=== PATIENT | female | born 1960 | race Caucasian/White ===

== ENCOUNTER → 2017-06-28 | Outpatient (CLI) | payer BC ==
[2015-11-25 11:07] VITALS: BP 112/62
--- NOTE | 2017-07-04 08:17 | MG ---
Examination: Bilateral screening mammogram. Clinical history: Routine screening. Technique: Digital CC and MLO views of both breasts were obtained. Computer aided detection analysis was performed and used during the interpretation. Comparison: 06/09/2016. Findings: The breasts are heterogeneously dense, reducing the sensitivity of mammography. Benign-appearing calc ifications are noted in the breasts bilaterally. No suspicious mass, area of architectural distortion or suspicious cluster of microcalcifications is noted. Impression: 1. No mammographic evidence of malignancy. BI-RADS category 2-benign findings. Recommend routine annual screening mammogram. Diagnostic CAD was utilized and reviewed. * 0 (ZERO) - ASSESSMENT INCOMPLETE; ADDITIONAL IMAGING IS NEEDED. * 0C - ASSESSMENT INCOMPLETE, NEEDS ADDITIONAL IMAGING EVALUATION AND/OR PRIOR MAMMOGRAMS FOR COMPARI SON. * 1/1 (ONE) - NEGATIVE. * 2/II (TWO) - BENIGN FINDINGS. * 3/III (THREE) - PROBABLY BENIGN FINDING; SHORT INTERVAL FOLLOW-UP SUGGESTED. * 4/IV (FOUR) - SUSPICIOUS ABNORMALITY; BIOPSY SHOULD BE CONSIDERED. * 5/V - HIGHLY SUSPICIOUS OF MALIGNANCY; BIOPSY SHOULD BE PERFORMED. * 6/IV - KNOWN BIOPSY PROVEN MALIGNANCY-APPROPRIATE ACTION SHOULD BE TAKEN. A NEGATIVE X-RAY REPORT SHOULD NOT DELAY BIOPSY IF A DOMINANT OR CLINICALLY SUSPICIOUS MASS IS PRESENT; 4 TO 8 PERCENT OF CANCERS ARE NOT IDENTIFIED BY X-RAY. A NEGATIVE REPORT MAY REINFORCE THE CLINICAL IMPRESSION. ADENOSIS AND DENSE BREASTS MAY OBSCURE AN UNDERLYING NEOPLASM. Reported By:
== END ==
LOC: RAD 13:51
PROVIDERS: ATTEND Internal Medicine
DX: Z12.31 Encounter for screening mammogram for malignant neoplasm of breast (principal)
CPT/HCPCS: 77067

== ENCOUNTER 2020-09-05 20:25 | Inpatient (IN) ==
[2020-09-05 20:35] VITALS: BMI 36.6
--- NOTE | 2020-09-05 21:19 | DR.GENAD ---
HPI - PCP Primary Care Physician: SURAJ - Complaint/Symptoms Chief Complaint Doctors Comments: Patient is complaining of problems breathing, SOB and weakness for the past three days getting progressively worst. States she has been trying to take care of herself at home. She is a patient of Dr. Reaves and denies problems with her smell but having problems with her taste. She denies tobacco, alcohol or drug usage. She has a cough bukt denies diarrhea, hematuria or vomiting. States her stomach has been distended but she had a normal bowel movement earlier today. She has nebulizers treatment with albuterol and she took two yesterday and last night. Chief Complaint:: STARTED HAVING WEAKNESS 3 DAYS AGO AND SHORTNESS OF BREATH. SOB HAS BECAME WORSE TODAY. PATIENT HAS NOT CALLED HER PRIMARY PHYSICIAN BECAUSE SHE THOUGHT SHE WOULD GET BETTER. - COVID-19 Coronavirus risk:travel/contact w/high risk person: Yes Has patient experienced Coronavirus symptoms: Yes Coronavirus symptoms experienced: Shortness of Breath - Nurses notes reviewed Nurses Notes Review: Yes - Source History Provided: Patient - Mode of Arrival Mode of Arrival: Wheelchair - Timing Onset of Chief Complaint: 09/02/20 Came on: Gradually - Duration Duration: Constant How lon Duration: Days - Location Location: SOB, cough - Severity Severity: Moderate - Modifying Factors Worsens:: nothing Improves:: nothing PMH - PMH Past Medical History: Yes Past Medical History: Anxiety, Arthritis Past Surgical History: Yes Surgical History: Cholecystectomy, Hysterectomy, Joint Replacement, Other, Tonsillectomy, Weight Loss Surgery - Family History History of Family Medical Conditions: Yes Family Medical History: Diabetes Mellitus, Cancer, [place], Coronary Artery Disease, Hypertension - Social History Does patient currently use any type of tobacco product: No Have you used tobacco products in the last 12 months: No Type of Tobacco Use: None Does any household member use tobacco: No Alcohol Use: None Do you use any recreational Drugs:: No Lives With: Spouse Lives Where: Home - infectious screening In the last 2 months have you had wt loss of >10#?: NO Have you had fever, night sweats or hemotysis?: No Have you traveled outside the country in the last 6 months?: No Isolation: Droplet ROS - Review of Systems Constitutional: No Symptoms Reported, Weakness, Loss of Appetite Eyes: No Symptoms Reported ENTM: No Symptoms Reported Respiratoy: No Symptoms Reported, Non-Productive Cough, Short of Breath Cardiovascular: No Symptoms Reported. negative: See HPI, Chest Pain, Edema, Palpitations, Syncope, Cyanosis, Skin Mottling, Other Gastrointestinal/Abdominal: No Symptoms Reported, Nausea. negative: See HPI, Abdominal Pain, Constipation, Diarrhea, Vomiting, Food Intolerance, Other Genitourinary: No Symptoms Reported Neurological: No Symptoms Reported Musculoskeletal: No Symptoms Reported Integumentary: No Symptoms Reported Hematologic/Lymphatic: No Symptoms Reported. negative: See HPI, Anemia, Blood Clots, Easy Bleeding, Easy Bruising, Swollen Glands, Lymphadenopathy, Other Endocrine: No Symptoms Reported Psychiatric: No Symptoms Reported. negative: See HPI, Anxiety, Depression, Hallucinations, Excessive crying, Suicidal, Other PE - General Limitations: No Limitations General Appearance: Alert, In No Apparent Distress, In Distress (moderate) - Head Head Exam: Normal Inspection, Atraumatic, Normocephalic - Eyes Eye exam: Normal Appearance, PERRL, EOMI. negative: Scleral Icterus, Conjuncti sandra Injection, Nystagmus, Miosis, Mydrasis, Periorbital Swelling, Periorbital Tenderness, Other - ENT ENT Exam: Normal Exam, Normal Oropharynx, Normal External Ear Exam, Mucous Membranes Moist, TM's Normal Bilaterally External Ear Exam: Normal External Inspection TM/Canal Exam: Bilateral Normal Nose Exam: Normal Nose Exam Mouth Exam: Normal Inspection Throat Exam: Normal Inspection. negative: Tonsillar Erythema, Tonsillomegaly, Tonsillar Exudate, R Peritonsillar Mass, L Peritonsillar Mass, Muffled Voice, Other - Neck Neck Exam: Normal Inspection, Full ROM, Trachea Midline. negative: Tenderness, Meningismus, Lymphadenopathy, Thyromegaly, Other - Chest Chest Inspection: Normal Inspection, Symmetric Chest Wall Rise. negative: Tenderness, Rash, Abscess, Other - Respiratory Respiratory Exam: Normal Lung Sounds Bilat, Prolonged Expiratory Phase Respiratory Exam: Bilateral Clear to Auscultation - Cardiovascular Cardiovascular Exam: Regular Rate, Normal Rhythm, Normal Heart Sounds - Abdominal Exam Abdominal Exam: Normal Inspection, Normal Bowel Sounds, Soft, Distention, Tenderness (RLQ and suprapubic tenderness), Hyperactive Bowel Sounds Abdominal Tenderness: RLQ, Epigastrium, Moderate - Extremities Extremities Exam: Normal Inspection, Full ROM, Normal Capillary Refill. negative: Tenderness, Edema, Joint Swelling, Calf Tenderness, Other - Back Back Exam: Normal Inspection, Full ROM. negative: Tenderness, (R) CVA Tenderness, (L) CVA Tenderness, Muscle Spasm, Paraspinal Tenderness, Vertebral Tenderness, Rashes, (R) Sciatic Notch Tenderness, (L) Sciatic Notch Tendern, (R) Straight Leg Raise, (L) Straight Leg Raise, Other - Neurologic Neurological Exam: Alert, Oriented X3, CN II-XII Intact, Reflexes Normal. negative: Normal Gait (gait not tested) - Psychiatric Psychiatric Exam: Normal Affect, Normal Mood. negative: Depressed, Agitated, Anxious, Flat Affect, Manic, Homicidal Ideation, Suicidal Ideation, Other - Skin Skin Exam: Warm, Dry, Intact, Normal Color. negative: Rash, Cyanosis, Diaphoresis, Erythema, Pallor, Mottled, Other - Vital Signs Vitals: Temperature 98.0 F Pulse Rate 77 Respiratory Rate 31 Blood Pressure [Left Arm] 123/82 Blood Pressure 145/89 O2 Sat by Pulse Oximetry 92 Course - Reevaluation 1st: Improved (0147 Patient states she is breathing better and agrees to the admission.) - Consultation Called: 23:26 Call Returned: 23:26 (Dr. Mora to admit) - Education/Counseling Education/Counseling: Patient, Family Educated On: Treatment, Diagnosis, Needs for Follow Up ROR - Labs Reviewed Laboratory Results Reviewed?: Yes (All labs and x-ray results reviewed and discussed with patient) Result Diagrams: 09/05/20 21:43 09/05/20 21:43 - XRAY XRAY Interpreted by: Radiologist (CXR: Consistent with mod to severe CHF or interstitial pneumonia (rule or COVID) in appropriate clinical setting.) - EKG Rate: 86 [place]: Normal Rhythm: NSR Block: LBBB Hypertrophy: None ST: Nonsp - Labs Reviewed Laboratory: WBC 7.2 X10^3/uL (3.6-10.0) 09/05/20 21:43 RBC 4.73 X10^6/uL (3.5-5.4) 09/05/20 21:43 Hgb 13.8 g/dL (12.0-16.0) 09/05/20 21:43 Hct 40.6 % (36.0-47.0) 09/05/20 21:43 MCV 86.0 fL (80.0-100.0) 09/05/20 21:43 MCH 29.3 pg (27.0-34.0) 09/05/20 21:43 MCHC 34.0 g/dL (33.0-35.0) 09/05/20 21:43 RDW 13.3 % (11.6-16.5) 09/05/20 21:43 Plt Count 260 X10^3/uL (150.0-450.0) 09/05/20 21:43 MPV 7.6 fL (7.4-11.0) 09/05/20 21:43 Neut % (Auto) 70.9 % (42.0-75.0) 09/05/20 21:43 Lymph % (Auto) 17.8 % (21.0-51.0) L 09/05/20 21:43 [place] % (Auto) 10.9 % (0.0-13.0) 09/05/20 21:43 Eos % (Auto) 0.2 % (0.9-2.9) L 09/05/20 21:43 Baso % (Auto) 0.2 % (0.2-1.0) 09/05/20 21:43 Neut # (Auto) 5.1 x10^3/uL (2.2-4.8) H 09/05/20 21:43 Lymph # (Auto) 1.3 X10^3/uL (1.3-2.9) 09/05/20 21:43 [place] # (Auto) 0.8 x10^3/uL (0.3-0.8) 09/05/20 21:43 Eos # (Auto) 0.0 x10^3/uL (0.0-0.2) 09/05/20 21:43 Baso # (Auto) 0.0 X10^3/uL (0.0-0.1) 09/05/20 21:43 Absolute Nucleated RBC 0.0 /100WBC 09/05/20 21:43 PT 14.4 SECONDS (11.8-14.3) 09/05/20 21:43 INR Target Range - 09/05/20 21:43 INR 1.15 (0.8-1.3) 09/05/20 21:43 APTT 34.0 SECONDS (22.9-36.5) 09/05/20 21:43 PTT Comment - 09/05/20 21:43 D-Dimer 0.73 ug/ml (0.0-0.57) H* 09/05/20 21:43 Sample Site Lb 09/05/20 22:02 ABG pH 7.470 (7.35-7.45) H 09/05/20 22:02 ABG pCO2 40.0 mmHg (35.0-45.0) 09/05/20 22:02 ABG pO2 64.0 mmHg (80.0-100.0) L 09/05/20 22:02 ABG HCO3 29.1 mmol/L (22-26) H 09/05/20 22:02 ABG O2 Saturation 93.0 % (90-100) 09/05/20 22:02 ABG Base Excess 5.0 mmol/L (-2.0-2.0) H 09/05/20 22:02 Tino Test Na 09/05/20 22:02 A-a Gradient 143.0 mmHg 09/05/20 22:02 FiO2 36.0 09/05/20 22:02 Blood Gas Comments [facility]e [facility] 09/05/20 22:02 Sodium 138 mmol/L (136-145) 09/05/20 21:43 Corrected Sodium TNP 09/05/20 21:43 Potassium 3.6 mmol/L (3.5-5.1) 09/05/20 21:43 Chloride 100 mmol/L (98-107) 09/05/20 21:43 Carbon Dioxide 28.2 mmol/L (21-32) 09/05/20 21:43 BUN 8 mg/dL (7-18) 09/05/20 21:43 Creatinine 0.70 mg/dL (0.55-1.02) 09/05/20 21:43 Est GFR (MDRD) Af Amer > 60 (>60) 09/05/20 21:43 Est GFR (MDRD) Non-Af > 60 (>60) 09/05/20 21:43 Glucose 94 mg/dL (65-99) 09/05/20 21:43 Calcium 9.3 mg/dL (8.5-10.1) 09/05/20 21:43 Corrected Calcium 10.2 mg/dL (8.5-10.1) H 09/05/20 21:43 Magnesium 1.9 mg/dL (1.7-2.9) 09/05/20 21:43 Ferritin 426 ng/mL (8-252) H 09/05/20 21:43 Total Bilirubin 0.40 mg/dL (0.2-1.0) 09/05/20 21:43 AST 40 Units/L (15-37) H 09/05/20 21:43 ALT 26 Units/L (12-78) 09/05/20 21:43 Alkaline Phosphatase 97 Units/L (46-116) 09/05/20 21:43 Creatine Kinase 24 Units/L (26-192) L 09/05/20 21:43 CK-MB (CK-2) < 1.0 ng/mL (0-4.0) 09/05/20 21:43 CK/CKMB % Calc 4.2 % (<4) 09/05/20 21:43 Troponin I < 0.02 ng/mL (0-1.5) 09/05/20 21:43 C-Reactive Protein 64.10 mg/L (0-3.0) H 09/05/20 21:43 B-Natriuretic Peptide 90.6 pg/mL (0-79) H 09/05/20 21:43 Total Protein 7.6 g/dL (6.4-8.2) 09/05/20 21:43 Albumin 2.9 g/dL (3.4-5.0) L 09/05/20 21:43 Globulin 4.7 g/dL (2.5-4.5) H 09/05/20 21:43 Albumin/Globulin Ratio 0.6 Ratio (1.1-2.1) L 09/05/20 21:43 Specimen Type Clean catch urine 09/04/20 23:57 Urine Color Yellow (YELLOW) 09/04/20 23:57 Urine Appearance Clear (CLEAR) 09/04/20 23:57 Urine pH 7.0 (5.0 - 8.0) 09/04/20 23:57 Ur Specific [place] 1.015 (1.000-1.030) 09/04/20 23:57 Urine Protein 1+ (NEGATIVE) 09/04/20 23:57 Urine Glucose (UA) Negative (NEGATIVE) 09/04/20 23:57 Urine Ketones 2+ (NEGATIVE) 09/04/20 23:57 Urine Occult Blood Negative (NEGATIVE) 09/04/20 23:57 Urine Nitrite Negative (NEGATIVE) 09/04/20 23:57 Urine Bilirubin Negative (NEGATIVE) 09/04/20 23:57 Urine Urobilinogen Normal (NORMAL) 09/04/20 23:57 Ur Leukocyte Esterase 2+ (NEGATIVE) 09/04/20 23:57 Urine RBC 0-2 /HPF (0-3) 09/04/20 23:57 Urine WBC 0-2 /HPF (0-5) 09/04/20 23:57 Ur Squamous Epith Cells Few /HPF (NEGATIVE) 09/04/20 23:57 Urine Bacteria Negative /HPF (NEGATIVE) 09/04/20 23:57 Ur Culture Indicated? No/not indicated 09/04/20 23:57 SARS CoV-2 RNA Rapid LARISSA Positive (NEGATIVE) A 09/05/20 22:17 SARS-CoV-2 IgG Ab Cancelled 09/05/20 21:43 SARS-CoV-2 IgG (PALOMA) 1 Cancelled 09/05/20 21:43 - XRAY Xray Findings: CTA Chest: No evidence of acute pulmonary emboli. Extensive bilateral geographic ground-glass opacities throughout the lukng farias, most concerning for COVID-19 pneumonia. (MARCIE BANEGAS) Opioid - Opioid Risk Tool Total: 0 Total Score Risk Category: Low Risk - Diagnosis Discharge Problem: Pneumonia due to COVID-19 virus, Hypoxemia, Hypercalcemia, Respiratory distress - Discharge Plan Disposition: ADMITTED INPATIENT Condition: Stable
[2020-09-05] MEDS ORDERED: NS 1000 ML 1,000 ML ONE (21:30)
[2020-09-05] MEDS: NS 1000 ML 1,000 ML IV SCH (21:35)
--- NOTE | 2020-09-05 21:47 | RAD ---
EXAM: CHEST X-RAYHISTORY: Chest pain. Difficulty breathing.TECHNIQUE: AP chest x-ray dated 09/05/2020 at 9:23 PM.COMPARISON: None.FINDINGS:There is evidence for cardiomegaly. The pulmonary vascularity and interstitial markings are diffusely prominent, consistent with moderate to severe CHF or volume overload in the appropriate clinical setting; differential diagnosis includes (but is not limited to) mild interstitial pneumonia in the appropriate clinical setting.There is no gross focal lung consolidation, pleural effusion, or pneumothorax seen. The visualized bony structures are within normal limits.IMPRESSION:1. Findings consistent with moderate to severe CHF or volume overload in the appropriate clinical setting; DDX includes (but is not limited to) interstitial pneumonia (rule out Covid pneumonia) in the appropriate clinical setting.2. Recommend clinical correlation and appropriate follow up knee evaluation to ensure interval clearance as clinically warranted.3. Consider follow up evaluation with noncontrast chest CT to rule out Covid pneumonia if clinically warranted.Electronically signed by: Fernando Garcia (Sep 05, 2020 21:45:56)
[2020-09-05 22:05] LABS: BASOPHILS % (AUTO) 0.2 % (0.2-1.0); EOSINOPHILS % (AUTO) 0.2 % (0.9-2.9); HEMATOCRIT 40.6 % (36.0-47.0); HEMOGLOBIN 13.8 g/dL (12.0-16.0); LYMPHOCYTES # (AUTO) 1.3 X10^3/uL (1.3-2.9); LYMPHOCYTES % (AUTO) 17.8 % (21.0-51.0); MEAN CORPUSCULAR HEMOGLOBIN 29.3 pg (27.0-34.0); MEAN PLATELET VOLUME 7.6 fL (7.4-11.0); MONOCYTES # (AUTO) 0.8 x10^3/uL (0.3-0.8); MONOCYTES % (AUTO) 10.9 % (0.0-13.0); NEUTROPHILS # (AUTO) 5.1 x10^3/uL (2.2-4.8); NEUTROPHILS % (AUTO) 70.9 % (42.0-75.0); PLATELET COUNT 260 X10^3/uL (150.0-450.0); RED BLOOD COUNT 4.73 X10^6/uL (3.5-5.4); RED CELL DISTRIBUTION WIDTH 13.3 % (11.6-16.5); WHITE BLOOD COUNT 7.2 X10^3/uL (3.6-10.0)
[2020-09-05 22:12] LABS: ABG HCO3 29.1 mmol/L (22-26)
[2020-09-05 22:23] LABS: BLOOD UREA NITROGEN 8 mg/dL (7-18); CALCIUM 9.3 mg/dL (8.5-10.1); CARBON DIOXIDE 28.2 mmol/L (21-32); CHLORIDE 100 mmol/L (98-107); SODIUM 138 mmol/L (136-145); TROPONIN I < 0.02 ng/mL (0-1.5); eGFR NON BLACK RACES > 60 (>60)
[2020-09-05 22:32] LABS: ALANINE AMINOTRANSFERASE 26 Units/L (12-78); ALBUMIN 2.9 g/dL (3.4-5.0); ALKALINE PHOSPHATASE 97 Units/L (46-116); ASPARTATE AMINO TRANSFERASE 40 Units/L (15-37); CKMB % 4.2 % (<4); COR CA(FOR HYPOALB) 10.2 mg/dL (8.5-10.1); CREATINE KINASE 24 Units/L (26-192); CREATINE KINASE MB < 1.0 ng/mL (0-4.0); MAGNESIUM 1.9 mg/dL (1.7-2.9); TOTAL PROTEIN 7.6 g/dL (6.4-8.2)
[2020-09-05] MEDS ORDERED: ROCEPHIN VIAL 1 GRAM 1 G in NS 100 ML IV + SPIKE MINIBAG* 100 ML IV ONE (23:13)
[2020-09-05] MEDS ORDERED: ROCEPHIN 1 GRAM IV PREMIX 1 G/50 ML IV.SOLN. IV ONE (23:17)
[2020-09-05] MEDS ORDERED: NS 100 ML IV 100 ML IV ONE (23:26)
[2020-09-06 00:07] LABS: BILIRUBIN,URINE NEGATIVE (NEGATIVE); BLOOD/HEMOGLOBIN,URINE NEGATIVE (NEGATIVE); GLUCOSE, URINE NEGATIVE (NEGATIVE); KETONES,URINE 2+ (NEGATIVE); LEUKOCYTE ESTERASE ,URINE 2+ (NEGATIVE); NITRITES,URINE NEGATIVE (NEGATIVE); PROTEIN,URINE 1+ (NEGATIVE); UROBILINOGEN,URINE NORMAL (NORMAL)
[2020-09-06] MEDS ORDERED: TORADOL 30 MG VIAL IVP ONE ×2 (00:32)
[2020-09-06] MEDS ORDERED: TORADOL 30 MG VIAL ONE (00:33)
[2020-09-06 00:41] LABS: APPEARANCE,URINE CLEAR (CLEAR); BACTERIA,URINE NEGATIVE /HPF (NEGATIVE); COLOR,URINE YELLOW (YELLOW); RBC,URINE 0-2 /HPF (0-3); SQUAMOUS EPITHELIAL CELL,UR FEW /HPF (NEGATIVE)
--- NOTE | 2020-09-06 01:25 | CT ---
HISTORYSOBSTUDYCTA CHESTCOMPARISONNoneTECHNIQUEMultiple axial images of the chest were obtained from the thoracic inlet to the upper abdomen after the administration of IV contrast. 3D reconstructions utilizing axial MIPS imaging was performed and reviewed. Dose reduction techniques including Automated Exposure Control (AEC) and adjustment of mA and kV were utilized.FINDINGSPulmonary arteries: There is no central filling defects of the pulmonary arterial system to suggest acute pulmonary emboli. Limited assessment of segmental and subsegmental pulmonary arteries due to motion degradation.Mediastinum: Mildly enlarged mediastinal and right hilar lymph nodes. Heart size is within normal limits. No paricardial effusion The thoracic aorta is normal in its contour without evidence for aneurysmal dilatation.Lungs: Bilateral geographic ground-glass attenuation throughout the lung farias, most pronounced involving the upper lobes. No pleural effusion or pneumothorax. The central airway is grossly patent.Chest wall: No axillary adenopathy.Bones: No aggressive osseus lesion or acute fracture.Upper abdomen: The visualized portions of the upper abdomen are grossly unremarkable.Status post cholecystectomy.IMPRESSIONNo evidence of acute pulmonary emboli.Limited assessment of segmental and subsegmental pulmonary arteries due to motion degradation.Extensive bilateral geographic ground-glass opacities throughout the lung farias, most concerning for COVID-19 pneumonia, and correlation with COVID-19 testing is recommended.Mediastinal and right hilar adenopathy, likely reactive.Electronically signed by: Tamica Foley (Sep 06, 2020 01:24:21)
[2020-09-06] MEDS: REMDESIVIR 200 MG in NS 250 ML IV 250 ML IV SCH (03:00)
[2020-09-06] MEDS: NS 1000 ML 1,000 ML IV SCH ×2 (03:00→06:29)
[2020-09-06] MEDS: ASCORBIC ACID INJ MULTI-DOSE VIAL 1,500 MG in NS 100 ML IV 100 ML IV SCH ×4 (04:10→21:45)
[2020-09-06 06:37] LABS: BASOPHILS % (AUTO) 0.2 % (0.2-1.0); EOSINOPHILS % (AUTO) 0.5 % (0.9-2.9); HEMATOCRIT 39.3 % (36.0-47.0); HEMOGLOBIN 12.9 g/dL (12.0-16.0); LYMPHOCYTES # (AUTO) 1.8 X10^3/uL (1.3-2.9); LYMPHOCYTES % (AUTO) 30.3 % (21.0-51.0); MEAN CORPUSCULAR HEMOGLOBIN 28.5 pg (27.0-34.0); MEAN CORPUSCULAR HGB CONC 32.9 g/dL (33.0-35.0); MEAN CORPUSCULAR VOLUME 86.6 fL (80.0-100.0); MONOCYTES # (AUTO) 0.6 x10^3/uL (0.3-0.8); MONOCYTES % (AUTO) 10.2 % (0.0-13.0); NEUTROPHILS # (AUTO) 3.5 x10^3/uL (2.2-4.8); NEUTROPHILS % (AUTO) 58.8 % (42.0-75.0); PLATELET COUNT 259 X10^3/uL (150.0-450.0); RED BLOOD COUNT 4.54 X10^6/uL (3.5-5.4); RED CELL DISTRIBUTION WIDTH 13.2 % (11.6-16.5)
[2020-09-06 07:03] LABS: ALANINE AMINOTRANSFERASE 24 Units/L (12-78); ALBUMIN 2.6 g/dL (3.4-5.0); ALKALINE PHOSPHATASE 92 Units/L (46-116); ASPARTATE AMINO TRANSFERASE 39 Units/L (15-37); BLOOD UREA NITROGEN 6 mg/dL (7-18); CALCIUM 8.6 mg/dL (8.5-10.1); CARBON DIOXIDE 28.6 mmol/L (21-32); CHLORIDE 102 mmol/L (98-107); COR CA(FOR HYPOALB) 9.7 mg/dL (8.5-10.1); CREATININE 0.71 mg/dL (0.55-1.02); SODIUM 140 mmol/L (136-145); TOTAL PROTEIN 7.1 g/dL (6.4-8.2); TROPONIN I < 0.02 ng/mL (0-1.5); eGFR NON BLACK RACES > 60 (>60)
[2020-09-06] MEDS ORDERED: VITAMIN A PO SCH (09:00)
[2020-09-06] MEDS ORDERED: DECADRON TAB PO SCH (09:00)
[2020-09-06] MEDS ORDERED: VITAMIN D (1.25MG) PO SCH (09:00)
[2020-09-06] MEDS ORDERED: POTASSIUM CHL 40 MEQ/NS 0.45% 500 ML IV PRN (09:15)
[2020-09-06] MEDS ORDERED: MICRO K EXTEN CAP 10 MEQ PO PRN (09:15)
[2020-09-06] MEDS ORDERED: KLOR-CON PO PRN (09:15)
[2020-09-06] MEDS ORDERED: POTASSIUM CHL 60 MEQ/NS 0.45% 500 ML IV PRN (09:15)
[2020-09-06] MEDS ORDERED: POTASSIUM CHLORIDE LIQ 20 MEQ UDC PO PRN (09:15)
[2020-09-06] MEDS ORDERED: K-RIDER 10 MEQ/NS 100 ML 10 MEQ/100 ML BAG IV PRN (09:15)
[2020-09-06] MEDS: LOVENOX INJ 30 MG SYR SC SCH ×2 (09:38→21:45)
[2020-09-06] MEDS: ZINC SULFATE PO SCH ×2 (09:39→21:45)
[2020-09-06] MEDS: TRICOR TAB 160 MG PO SCH (09:40)
[2020-09-06] MEDS: ULTRAM PO PRN ×2 (09:41→22:48)
[2020-09-06] MEDS: DUONEB 0.5 MG/3 MG (3 mL) NEB SCH ×4 (10:20→20:35)
[2020-09-06] MEDS: PULMICORT NEB TX 0.5 MG NEB SCH ×2 (10:20→22:23)
[2020-09-06 11:18] LABS: ABG BASE EXCESS 2.6 mmol/L (-2.0-2.0); ABG HCO3 26.2 mmol/L (22-26)
[2020-09-06 11:19] LABS: ABG ALLEN TEST POS
--- NOTE | 2020-09-06 11:34 | DR.H&P ---
H&P - History & Physical for Day of: H&P Date: 09/06/20 - Chief Complaint Chief Complaint: SOB - History of Present Illness History of Present Illness: Patient is complaining of problems breathing, SOB and weakness for the past three days getting progressively worst. States she has been trying to take care of herself at home. She is a patient of Dr. Reaves and denies problems with her smell but having problems with her taste. She denies tobacco, alcohol or drug usage. She has a cough bukt denies diarrhea, hematuria or vomiting. States her stomach has been distended but she had a normal bowel movement earlier today. She has nebulizers treatment with albuterol and she took two yesterday and last night. Pt has PMH OF HTN, OA, MARK, MDD. - Past Medical History Past Medical History: Anxiety, Arthritis Additional Medical History: Left Bundle Branch Block, Hiatal Hernia, Constipation, Degenerative Disc Disease - Past Surgical History Surgical History: Cholecystectomy, Hysterectomy, Tonsillectomy - Family History Family Medical History: Cancer, Hypertension - Social History Does patient currently use any type of tobacco product: No Have you used tobacco products in the last 12 months: No Type of Tobacco Use: None Does any household member use tobacco: No Alcohol Use: None Prescription drug monitoring program results: PDMP reviewed and no concerns identified - Medications Home Medications: Penicillins Allergy (Verified 07/24/18 13:32) CONTINUE taking the following medications alprazolam 0.5 mg PO TID 09/06/20 [History] benzonatate 200 mg PO TID PRN 09/06/20 [History] citalopram 10 mg PO HS 09/06/20 [History] clonazepam 2 mg PO HS 09/06/20 [History] clonidine HCl 0.1 mg PO HS 09/06/20 [History] fluticasone propionate 2 spray INTRANASAL BID 09/06/20 [History] furosemide 40 mg PO DAILY PRN 09/06/20 [History] guaifenesin [Mucinex] 600 mg PO BID 09/06/20 [History] hydroxychloroquine 200 mg PO TID 09/06/20 [History] meloxicam 15 mg PO DAILY 09/06/20 [History] iuzncroazosa-haaa-[id number] acid [Centrum Women] 1 tab PO QAM 09/06/20 [History] oxybutynin chloride 10 mg PO HS 09/06/20 [History] pseudoephedrine HCl [Sudafed] 30 mg PO Q4-6H PRN 09/06/20 [History] tramadol 100 mg PO TID PRN 09/06/20 [History] - Review of Systems Constitutional: Fever, Weakness Eyes: No Symptoms Reported ENT: No Symptoms Reported Respiratory: Cough, Shortness of Breath, SOB with Excertion, Wheezing Cardiovascular: No Symptoms Reported Gastrointestinal: Nausea Genitourinary: No Symptoms Reported Musculoskeletal: Back Pain Skin: No Symptoms Reported Neurological: Weakness - Physical Exam Vital Signs: Temperature 98.2 F Pulse Rate [Left] 82 Pulse Rate 73 Respiratory Rate 24 Blood Pressure [Left Arm] 122/72 Blood Pressure 129/76 O2 Sat by Pulse Oximetry 90 Oriented: Normal Eyes: Normal Ear: Normal Nose: Normal Throat: Normal Respiratory: RLL Diminished, LLL Diminished Cardiovascular: Normal : Normal Auscultation: Bowel Sounds: Normal Palpation: Normal Tenderness: Normal Skin: Decreased Turgur Musculoskeletal: Normal Psychiatric: Anxiety Affect: Anxious Speech Pattern: Clear, Appropriate - Assessment/Plan (1) Pneumonia due to COVID-19 virus Status: Acute Plan: ADMIT, IV ATBX, IV REMDESIVIR. IV SOLU MEDROL, AM ABG. STRICT I&OS, VERIFY HOME MEDICATION. SUPPLEMENTAL O2, RESP THERAPY. BP AND CARDIAC MONITORING (2) GERD (gastroesophageal reflux disease) Status: Chronic (3) Hypertension Status: Chronic (4) Anxiety Status: Chronic (5) Degenerative disc disease Status: Chronic (6) UTI (urinary tract infection) Status: Acute - Allergies Allergies/Adverse Reactions: Allergies Allergy/AdvReac Type Severity Reaction Status Date / Time Penicillins Allergy Verified 07/24/18 13:32
[2020-09-06] MEDS: PROTONIX INJ 40 MG VIAL IVP SCH ×2 (11:45→21:45)
[2020-09-06] MEDS: SOLU-Medrol 125 MG VIAL IVP SCH ×3 (12:00→21:45)
[2020-09-06] MEDS: ZITHROMAX INJ 500 MG VIAL 500 MG in NS 250 ML IV 250 ML IV SCH (12:00)
[2020-09-06] MEDS: LASIX PO SCH (12:00)
[2020-09-06] MEDS: K-DUR TAB 20 MEQ PO PRN ×2 (15:00→21:45)
[2020-09-06] MEDS: ROBITUSSIN DM PO SCH ×3 (16:39→21:45)
[2020-09-06] MEDS: XANAX PO PRN (21:45)
[2020-09-07] MEDS: NS 1000 ML 1,000 ML IV SCH ×2 (01:18→06:28)
[2020-09-07] MEDS: REMDESIVIR 200 MG in NS 250 ML IV 250 ML IV SCH (01:57)
[2020-09-07] MEDS: ASCORBIC ACID INJ MULTI-DOSE VIAL 1,500 MG in NS 100 ML IV 100 ML IV SCH ×4 (03:10→21:34)
[2020-09-07] MEDS: ULTRAM PO PRN (03:40)
[2020-09-07 05:12] LABS: ABG ALLEN TEST POS; ABG BASE EXCESS 3.7 mmol/L (-2.0-2.0); ABG HCO3 27.7 mmol/L (22-26)
[2020-09-07 05:56] LABS: ALANINE AMINOTRANSFERASE 32 Units/L (12-78); ALBUMIN 2.5 g/dL (3.4-5.0); ALKALINE PHOSPHATASE 100 Units/L (46-116); ASPARTATE AMINO TRANSFERASE 36 Units/L (15-37); BLOOD UREA NITROGEN 8 mg/dL (7-18); CALCIUM 8.8 mg/dL (8.5-10.1); CARBON DIOXIDE 23.8 mmol/L (21-32); CHLORIDE 104 mmol/L (98-107); COR NA(FOR HYPERGLY) 141 mmol/L (136-145); CREATININE 0.59 mg/dL (0.55-1.02); SODIUM 139 mmol/L (136-145); TOTAL PROTEIN 6.9 g/dL (6.4-8.2); eGFR NON BLACK RACES > 60 (>60)
[2020-09-07 06:07] LABS: BASOPHILS % (AUTO) 0.1 % (0.2-1.0); HEMATOCRIT 37.2 % (36.0-47.0); HEMOGLOBIN 12.4 g/dL (12.0-16.0); LYMPHOCYTES # (AUTO) 0.8 X10^3/uL (1.3-2.9); LYMPHOCYTES % (AUTO) 20.1 % (21.0-51.0); MEAN CORPUSCULAR HEMOGLOBIN 28.7 pg (27.0-34.0); MEAN CORPUSCULAR HGB CONC 33.4 g/dL (33.0-35.0); MEAN CORPUSCULAR VOLUME 85.7 fL (80.0-100.0); MEAN PLATELET VOLUME 8.6 fL (7.4-11.0); MONOCYTES # (AUTO) 0.3 x10^3/uL (0.3-0.8); MONOCYTES % (AUTO) 8.2 % (0.0-13.0); NEUTROPHILS # (AUTO) 2.9 x10^3/uL (2.2-4.8); NEUTROPHILS % (AUTO) 71.6 % (42.0-75.0); PLATELET COUNT 293 X10^3/uL (150.0-450.0); RED BLOOD COUNT 4.33 X10^6/uL (3.5-5.4)
[2020-09-07] MEDS: SOLU-Medrol 125 MG VIAL IVP SCH ×3 (06:09→21:35)
[2020-09-07] MEDS: XANAX PO PRN (06:09)
--- NOTE | 2020-09-07 07:48 | RAD ---
HISTORYCOVID, SOBSTUDYCHEST, 1 [id number]/19/2000FINDINGSThe trachea is midline. Stable mild cardiomegaly. There is again seen interstitial and patchy ground-glass radiopacities in the midlung zones as well as in the bases. There has been mild interval improvement of focal ground-glass radiopacities in the right upper lobe and in the left midlung zone. No effusion or pneumothorax.IMPRESSIONMild interval improvement with less dense ground-glass radiopacities in the left upper lobe and in the left midlung zone.Electronically signed by: Junie Gomez (Sep 07, 2020 07:46:49)
[2020-09-07] MEDS: PULMICORT NEB TX 0.5 MG NEB SCH ×3 (09:00→20:45)
[2020-09-07] MEDS: DUONEB 0.5 MG/3 MG (3 mL) NEB SCH ×5 (09:00→20:45)
[2020-09-07] MEDS: REMDESIVIR 100 MG in NS 250 ML IV 250 ML IV SCH (09:30)
[2020-09-07] MEDS: PROTONIX INJ 40 MG VIAL IVP SCH ×2 (09:30→21:36)
[2020-09-07] MEDS: TRICOR TAB 160 MG PO SCH (12:00)
[2020-09-07] MEDS: LASIX PO SCH (12:00)
[2020-09-07] MEDS: ZITHROMAX INJ 500 MG VIAL 500 MG in NS 250 ML IV 250 ML IV SCH (12:00)
[2020-09-07] MEDS: KLONOPIN TAB 0.5 MG PO SCH ×2 (12:00→21:37)
[2020-09-07] MEDS: ZINC SULFATE PO SCH ×2 (12:00→21:35)
[2020-09-07] MEDS: ROBITUSSIN DM PO SCH ×4 (12:00→21:37)
[2020-09-07] MEDS: LOVENOX INJ 30 MG SYR SC SCH ×2 (12:35→21:37)
--- NOTE | 2020-09-07 19:55 | PCM.PROG ---
Progress Note - Progress Note for Day of Date of Exam: 09/07/20 - Subjective Subjective: WAS ADMITTED ON 09/06/20 FOR TREATMENT OF PNEUMONIA DUE TO COVID-19 AND HYPOXIA. HER SYMPTOMS APPARENTLY STARTED THREE DAYS PRIOR TO ADMISSION. TODAY, SHE IS ALERT, LYING IN BED ON MORNING ROUNDS. SHE CONTINUES WITH COMPLAINTS OF COUGH, SHORTNESS OF BREATH, AND WEAKNESS. SHE DENIES S IGNIFICANT IMPROVEMENT SINCE ADMISSION. SHE ALSO REPORTS FELLING VERY ANXIOUS TODAY. SHE IS CURRENTLY UTILIZING HEATED HIGH FLOW OXYGEN. HER OXYGEN SATURATIONS HAVE BEEN 91-94% ON HEATED HIGH FLOW. ON EXAMINATION, HEART IS REGULAR IN RATE AND RHYTHM. BILATERAL LUNGS ARE NOTED WITH SCATTERED WHEEZING THROUGHOUT. ABDOMEN IS ROUND, SOFT, AND NON-TENDER WITH NORMAL BOWEL SOUNDS NOTED IN ALL QUADRANTS. HER VITALS THIS MORNING ARE: 97.8-73-20-91%HHF-126/73. LABS WERE OBTAINED. ABNORMAL LAB VALUES INCLUDE THE FOLLOWING: GLUCOSE 195, CRP 56.90, ALBUMIN 2.5. BLOOD AND SPUTUM CULTURES ARE PENDING. AN ABG WAS OBTAINED THIS MORNING AND REVEALED: PH 7.460, PC02 39, P02 70, HC03 27.7, 02 SAT 95, BASE EXCESS 3.7, FI02 47. A CHEST XRAY WAS OBTAINED AND REVEALED: Mild interval improvement with less dense ground-glass radiopacities in the left upper lobe and in the left midlung zone. SHE IS CURRENTLY RECEIVING NS AT 20 ML/HR, REMDESIVIR 100MG IV DAILY, AZITHROMYCIN 500MG IV DAILY, SOLU-MEDROL 80MG IV Q8H, DUONEBS QID, PULMICORT NEBS BID, LOVENOX 30MG SC BID, TRICOR 160MG PO DAILY, PROTONIX 40MG IV BID, ASCORBIC ACID 1500MG IV Q6H, KLONOPIN 0.5MG PO BID, LASIX 20MG PO DAILY, ROBITUSSIN DM 10 ML PO QID, AND THE POTASSIUM AND MAGNESIUM PROTOCOLS. TODAY, WE WILL ADD TORADOL 30MG IV Q8H PRN PAIN AND KLONOPIN 0.5MG PO BID. OTHERWISE, WE WILL CONTINUE WITH CURRENT PLAN OF CARE TODAY. WE WILL FOLLOW UP WITH AM LABS, CHEST XRAY, AND ABG AND CONTINUE TO MONITOR. - Past Medical Family Social History Past Med/Fam/Surg Hx: No changes since H&P Allergies: Allergies Penicillins Allergy (Verified 07/24/18 13:32) - Review of Systems ROS: No change since H&P - Vital Signs and I&O's Vital Signs: Temperature 98.4 F Pulse Rate [Left] 76 Pulse Rate 80 Respiratory Rate 24 Blood Pressure [Left Arm] 117/74 Blood Pressure 129/76 O2 Sat by Pulse Oximetry 93 Intake and Output: Intake & Output 09/05/20 09/06/20 09/07/20 09/08/20 11:59 11:59 11:59 11:59 Intake Total 890 / 890 1126 / 1126 1829 / 182 Output Total 550 / 550 900 / 900 Balance 340 / 340 226 / 226 1828 / 1828 - Physical Exam Oriented: Normal Eyes: Normal Ear: Normal Nose: Normal Throat: Normal Respiratory: Generalized, Diminished, Wheezes Cardiovascular: Normal : Normal Auscultation: Bowel Sounds: Normal Palpation: Normal Tenderness: Normal Skin: Decreased Turgur Musculoskeletal: Normal Psychiatric: Anxiety Affect: Anxious Speech Pattern: Clear - Laboratory and Diagnostics Result Diagrams: 09/07/20 04:38 09/07/20 04:38 Labs: 09/05/20 22:40 Blood Blood Culture - Preliminary 09/05/20 21:43 Blood Blood Culture - Preliminary Laboratory WBC 4.0 X10^3/uL (3.6-10.0) 09/07/20 04:38 RBC 4.33 X10^6/uL (3.5-5.4) 09/07/20 04:38 Hgb 12.4 g/dL (12.0-16.0) 09/07/20 04:38 Hct 37.2 % (36.0-47.0) 09/07/20 04:38 MCV 85.7 fL (80.0-100.0) 09/07/20 04:38 MCH 28.7 pg (27.0-34.0) 09/07/20 04:38 MCHC 33.4 g/dL (33.0-35.0) 09/07/20 04:38 RDW 13.0 % (11.6-16.5) 09/07/20 04:38 Plt Count 293 X10^3/uL (150.0-450.0) 09/07/20 04:38 MPV 8.6 fL (7.4-11.0) 09/07/20 04:38 Neut % (Auto) 71.6 % (42.0-75.0) 09/07/20 04:38 Lymph % (Auto) 20.1 % (21.0-51.0) L 09/07/20 04:38 [place] % (Auto) 8.2 % (0.0-13.0) 09/07/20 04:38 Eos % (Auto) 0.0 % (0.9-2.9) L 09/07/20 04:38 Baso % (Auto) 0.1 % (0.2-1.0) L 09/07/20 04:38 Neut # (Auto) 2.9 x10^3/uL (2.2-4.8) 09/07/20 04:38 Lymph # (Auto) 0.8 X10^3/uL (1.3-2.9) L 09/07/20 04:38 [place] # (Auto) 0.3 x10^3/uL (0.3-0.8) 09/07/20 04:38 Eos # (Auto) 0.0 x10^3/uL (0.0-0.2) 09/07/20 04:38 Baso # (Auto) 0.0 X10^3/uL (0.0-0.1) 09/07/20 04:38 Absolute Nucleated RBC 0.1 /100WBC 09/07/20 04:38 PT 14.4 SECONDS (11.8-14.3) 09/05/20 21:43 INR Target Range - 09/05/20 21:43 INR 1.15 (0.8-1.3) 09/05/20 21:43 APTT 34.0 SECONDS (22.9-36.5) 09/05/20 21:43 PTT Comment - 09/05/20 21:43 D-Dimer 0.73 ug/ml (0.0-0.57) H* 09/05/20 21:43 Sample Site Rr 09/07/20 05:00 ABG pH 7.460 (7.35-7.45) H 09/07/20 05:00 ABG pCO2 39.0 mmHg (35.0-45.0) 09/07/20 05:00 ABG pO2 70.0 mmHg (80.0-100.0) L 09/07/20 05:00 ABG HCO3 27.7 mmol/L (22-26) H 09/07/20 05:00 ABG O2 Saturation 95.0 % (90-100) 09/07/20 05:00 ABG Base Excess 3.7 mmol/L (-2.0-2.0) H 09/07/20 05:00 Tino Test Pos 09/07/20 05:00 A-a Gradient 216.0 mmHg 09/07/20 05:00 FiO2 47.0 09/07/20 05:00 Blood Gas Comments Bettye well sw 09/07/20 05:00 Sodium 139 mmol/L (136-145) 09/07/20 04:38 Corrected Sodium 141 mmol/L (136-145) 09/07/20 04:38 Potassium 3.8 mmol/L (3.5-5.1) 09/07/20 04:38 Chloride 104 mmol/L (98-107) 09/07/20 04:38 Carbon Dioxide 23.8 mmol/L (21-32) 09/07/20 04:38 BUN 8 mg/dL (7-18) 09/07/20 04:38 Creatinine 0.59 mg/dL (0.55-1.02) 09/07/20 04:38 Est GFR (MDRD) Af Amer > 60 (>60) 09/07/20 04:38 Est GFR (MDRD) Non-Af > 60 (>60) 09/07/20 04:38 Glucose 195 mg/dL (65-99) H 09/07/20 04:38 Calcium 8.8 mg/dL (8.5-10.1) 09/07/20 04:38 Corrected Calcium 10.0 mg/dL (8.5-10.1) 09/07/20 04:38 Magnesium 2.0 mg/dL (1.7-2.9) 09/06/20 06:05 Ferritin 426 ng/mL (8-252) H 09/05/20 21:43 Total Bilirubin 0.20 mg/dL (0.2-1.0) 09/07/20 04:38 AST 36 Units/L (15-37) 09/07/20 04:38 ALT 32 Units/L (12-78) 09/07/20 04:38 Alkaline Phosphatase 100 Units/L (46-116) 09/07/20 04:38 Creatine Kinase 24 Units/L (26-192) L 09/05/20 21:43 CK-MB (CK-2) < 1.0 ng/mL (0-4.0) 09/05/20 21:43 CK/CKMB % Calc 4.2 % (<4) 09/05/20 21:43 Troponin I < 0.02 ng/mL (0-1.5) 09/06/20 06:05 C-Reactive Protein 56.90 mg/L (0-3.0) H 09/07/20 04:38 B-Natriuretic Peptide 90.6 pg/mL (0-79) H 09/05/20 21:43 Total Protein 6.9 g/dL (6.4-8.2) 09/07/20 04:38 Albumin 2.5 g/dL (3.4-5.0) L 09/07/20 04:38 Globulin 4.4 g/dL (2.5-4.5) 09/07/20 04:38 Albumin/Globulin Ratio 0.6 Ratio (1.1-2.1) L 09/07/20 04:38 Specimen Type Clean catch urine 09/04/20 23:57 Urine Color Yellow (YELLOW) 09/04/20 23:57 Urine Appearance Clear (CLEAR) 09/04/20 23:57 Urine pH 7.0 (5.0 - 8.0) 09/04/20 23:57 Ur Specific [place] 1.015 (1.000-1.030) 09/04/20 23:57 Urine Protein 1+ (NEGATIVE) 09/04/20 23:57 Urine Glucose (UA) Negative (NEGATIVE) 09/04/20 23:57 Urine Ketones 2+ (NEGATIVE) 09/04/20 23:57 Urine Occult Blood Negative (NEGATIVE) 09/04/20 23:57 Urine Nitrite Negative (NEGATIVE) 09/04/20 23:57 Urine Bilirubin Negative (NEGATIVE) 09/04/20 23:57 Urine Urobilinogen Normal (NORMAL) 09/04/20 23:57 Ur Leukocyte Esterase 2+ (NEGATIVE) 09/04/20 23:57 Urine RBC 0-2 /HPF (0-3) 09/04/20 23:57 Urine WBC 0-2 /HPF (0-5) 09/04/20 23:57 Ur Squamous Epith Cells Few /HPF (NEGATIVE) 09/04/20 23:57 Urine Bacteria Negative /HPF (NEGATIVE) 09/04/20 23:57 Ur Culture Indicated? No/not indicated 09/04/20 23:57 SARS CoV-2 RNA Rapid LARISSA Positive (NEGATIVE) A 09/05/20 22:17 SARS-CoV-2 IgG Ab Cancelled 09/05/20 21:43 SARS-CoV-2 IgG (PALOMA) 1 Cancelled 09/05/20 21:43 - Plan (1) Pneumonia due to 2019 novel coronavirus Status: Acute Plan: NS AT 20 ML/HR, REMDESIVIR 100MG IV DAILY, AZITHROMYCIN 500MG IV DAILY, SOLU-MEDROL 80MG IV Q8H, DUONEBS QID, PULMICORT NEBS BID, LOVENOX 30MG SC BID, TRICOR 160MG PO DAILY, PROTONIX 40MG IV BID, ASCORBIC ACID 1500MG IV Q6H, KLONOPIN 0.5MG PO BID, LASIX 20MG PO DAILY, ROBITUSSIN DM 10 ML PO QID, TORADOL 30MG IV Q8H PRN PAIN, KLONOPIN 0.5MG PO BID, AND THE POTASSIUM AND MAGNESIUM PROTOCOLS (2) Hypoxia Status: Acute
[2020-09-07] MEDS: TESSALON PERLES PO SCH (21:35)
[2020-09-07] MEDS: FLONASE NASAL SPRAY ENOSTRIL SCH (21:36)
[2020-09-07] MEDS: CATAPRES TAB 0.1 MG PO SCH (21:36)
[2020-09-07] MEDS: CELEXA PO SCH (21:37)
[2020-09-07] MEDS: TORADOL 30 MG VIAL IVP PRN (21:39)
[2020-09-08] MEDS: ULTRAM PO PRN ×3 (00:30→14:59)
[2020-09-08] MEDS: ASCORBIC ACID INJ MULTI-DOSE VIAL 1,500 MG in NS 100 ML IV 100 ML IV SCH ×4 (02:16→21:46)
[2020-09-08] MEDS: NS 1000 ML 1,000 ML IV SCH (02:16)
[2020-09-08 04:54] LABS: ABG ALLEN TEST POS; ABG BASE EXCESS 4.7 mmol/L (-2.0-2.0); ABG HCO3 29.2 mmol/L (22-26)
[2020-09-08] MEDS: TESSALON PERLES PO SCH ×3 (05:59→21:44)
[2020-09-08] MEDS: SOLU-Medrol 125 MG VIAL IVP SCH ×3 (05:59→21:46)
[2020-09-08 06:15] LABS: BASOPHILS % (AUTO) 0.1 % (0.2-1.0); HEMATOCRIT 38.1 % (36.0-47.0); HEMOGLOBIN 12.5 g/dL (12.0-16.0); LYMPHOCYTES % (AUTO) 8.7 % (21.0-51.0); MEAN CORPUSCULAR HEMOGLOBIN 28.4 pg (27.0-34.0); MEAN CORPUSCULAR HGB CONC 32.9 g/dL (33.0-35.0); MEAN CORPUSCULAR VOLUME 86.3 fL (80.0-100.0); MEAN PLATELET VOLUME 8.5 fL (7.4-11.0); MONOCYTES # (AUTO) 0.7 x10^3/uL (0.3-0.8); MONOCYTES % (AUTO) 5.6 % (0.0-13.0); NEUTROPHILS # (AUTO) 10.1 x10^3/uL (2.2-4.8); NEUTROPHILS % (AUTO) 85.6 % (42.0-75.0); PLATELET COUNT 365 X10^3/uL (150.0-450.0); RED BLOOD COUNT 4.42 X10^6/uL (3.5-5.4); RED CELL DISTRIBUTION WIDTH 13.1 % (11.6-16.5); WHITE BLOOD COUNT 11.8 X10^3/uL (3.6-10.0)
[2020-09-08 06:22] LABS: ALANINE AMINOTRANSFERASE 29 Units/L (12-78); ALBUMIN 2.7 g/dL (3.4-5.0); ALKALINE PHOSPHATASE 91 Units/L (46-116); ASPARTATE AMINO TRANSFERASE 21 Units/L (15-37); BLOOD UREA NITROGEN 14 mg/dL (7-18); CARBON DIOXIDE 26.9 mmol/L (21-32); CHLORIDE 103 mmol/L (98-107); COR NA(FOR HYPERGLY) 142 mmol/L (136-145); SODIUM 141 mmol/L (136-145); eGFR NON BLACK RACES > 60 (>60)
--- NOTE | 2020-09-08 06:55 | RAD ---
HISTORYFollow-up COVID-19STUDYChest AP [id number] heart remains enlarged. No congestive heart failure is noted. Bilateral interstitial and ground-glass infiltrates are slightly improved when compared to the prior examination. No pleural effusions are identified. Bony thorax is unremarkable.IMPRESSIONSlight improvement bilateral interstitial and ground-glass infiltrates when compared with the prior examinationNo change cardiomegaly without congestive heart failureElectronically signed by: ANAM HEWITT (Sep 08, 2020 06:53:24)
[2020-09-08] MEDS: KLONOPIN TAB 0.5 MG PO SCH ×2 (08:55→21:45)
[2020-09-08] MEDS: ROBITUSSIN DM PO SCH ×4 (08:56→21:44)
[2020-09-08] MEDS: FLONASE NASAL SPRAY ENOSTRIL SCH ×2 (08:56→21:46)
[2020-09-08] MEDS: ZINC SULFATE PO SCH ×2 (08:56→21:43)
[2020-09-08] MEDS: LASIX PO SCH (08:56)
[2020-09-08] MEDS: VITAMIN D3 125 mcg (5,000 UNITS) PO SCH (08:57)
[2020-09-08] MEDS: TAB-A-VITE PO SCH (08:57)
[2020-09-08] MEDS: TRICOR TAB 160 MG PO SCH (08:57)
[2020-09-08] MEDS ORDERED: [UNRECOGNIZED DRUG - OTHER] PO SCH (09:00)
[2020-09-08] MEDS ORDERED: VITAMIN A PO SCH (09:00)
[2020-09-08] MEDS ORDERED: MULTIVITAMIN PO SCH (09:00)
[2020-09-08] MEDS ORDERED: FOLIC ACID PO SCH (09:00)
[2020-09-08] MEDS ORDERED: IRON PO SCH (09:00)
[2020-09-08] MEDS: PULMICORT NEB TX 0.5 MG NEB SCH ×2 (09:30→20:50)
[2020-09-08] MEDS: DUONEB 0.5 MG/3 MG (3 mL) NEB SCH ×4 (09:30→20:50)
[2020-09-08] MEDS: LOVENOX INJ 30 MG SYR SC SCH ×2 (10:07→21:45)
[2020-09-08] MEDS: PROTONIX INJ 40 MG VIAL IVP SCH ×2 (10:08→21:44)
[2020-09-08] MEDS: REMDESIVIR 100 MG in NS 250 ML IV 250 ML IV SCH (10:08)
[2020-09-08] MEDS: ZITHROMAX INJ 500 MG VIAL 500 MG in NS 250 ML IV 250 ML IV SCH (11:30)
[2020-09-08] MEDS: TORADOL 30 MG VIAL IVP PRN (21:43)
[2020-09-08] MEDS: CATAPRES TAB 0.1 MG PO SCH (21:45)
[2020-09-08] MEDS: CELEXA PO SCH (21:45)
[2020-09-09] MEDS: NS 1000 ML 1,000 ML IV SCH (01:51)
[2020-09-09] MEDS: ASCORBIC ACID INJ MULTI-DOSE VIAL 1,500 MG in NS 100 ML IV 100 ML IV SCH ×4 (02:00→21:04)
[2020-09-09] MEDS: FIORICET TAB PO PRN ×2 (03:36→18:10)
[2020-09-09] MEDS: TESSALON PERLES PO SCH ×3 (05:12→21:07)
[2020-09-09] MEDS: SOLU-Medrol 125 MG VIAL IVP SCH ×3 (05:12→21:06)
[2020-09-09 05:47] LABS: BASOPHILS % (AUTO) 0.1 % (0.2-1.0); HEMATOCRIT 36.1 % (36.0-47.0); LYMPHOCYTES # (AUTO) 0.9 X10^3/uL (1.3-2.9); LYMPHOCYTES % (AUTO) 8.7 % (21.0-51.0); MEAN CORPUSCULAR HEMOGLOBIN 28.7 pg (27.0-34.0); MEAN CORPUSCULAR HGB CONC 33.4 g/dL (33.0-35.0); MEAN PLATELET VOLUME 8.4 fL (7.4-11.0); MONOCYTES # (AUTO) 0.6 x10^3/uL (0.3-0.8); MONOCYTES % (AUTO) 5.7 % (0.0-13.0); NEUTROPHILS # (AUTO) 8.9 x10^3/uL (2.2-4.8); NEUTROPHILS % (AUTO) 85.5 % (42.0-75.0); PLATELET COUNT 340 X10^3/uL (150.0-450.0); RED BLOOD COUNT 4.19 X10^6/uL (3.5-5.4); RED CELL DISTRIBUTION WIDTH 12.9 % (11.6-16.5); WHITE BLOOD COUNT 10.5 X10^3/uL (3.6-10.0)
[2020-09-09 06:07] LABS: ALANINE AMINOTRANSFERASE 21 Units/L (12-78); ALBUMIN 2.5 g/dL (3.4-5.0); ALKALINE PHOSPHATASE 78 Units/L (46-116); ASPARTATE AMINO TRANSFERASE 13 Units/L (15-37); BLOOD UREA NITROGEN 10 mg/dL (7-18); CALCIUM 8.7 mg/dL (8.5-10.1); CARBON DIOXIDE 28.2 mmol/L (21-32); CHLORIDE 104 mmol/L (98-107); COR CA(FOR HYPOALB) 9.9 mg/dL (8.5-10.1); COR NA(FOR HYPERGLY) 144 mmol/L (136-145); CREATININE 0.72 mg/dL (0.55-1.02); MAGNESIUM 2.2 mg/dL (1.7-2.9); SODIUM 141 mmol/L (136-145); TOTAL PROTEIN 6.3 g/dL (6.4-8.2); eGFR NON BLACK RACES > 60 (>60)
[2020-09-09 06:09] LABS: ABG BASE EXCESS 5.5 mmol/L (-2.0-2.0); ABG HCO3 29.9 mmol/L (22-26)
[2020-09-09 06:11] LABS: ABG ALLEN TEST POS
--- NOTE | 2020-09-09 07:34 | RAD ---
HISTORYSOB, COVID+STUDYCHEST, 1 [id number]/2020.TECHNIQUEAP view of the chestFINDINGSCardiac silhouette is mildly enlarged. Mild diffuse interstitial opacities appear similar. No pleural effusion or pneumothorax.IMPRESSIONSimilar appearance to prior study of interstitial opacities consistent with COVID-19.Electronically signed by: Micheal Prather (Sep 09, 2020 07:33:49)
[2020-09-09] MEDS: FLONASE NASAL SPRAY ENOSTRIL SCH ×2 (09:08→21:06)
[2020-09-09] MEDS: VITAMIN D3 125 mcg (5,000 UNITS) PO SCH (09:09)
[2020-09-09] MEDS: LASIX PO SCH (09:09)
[2020-09-09] MEDS: ZINC SULFATE PO SCH ×2 (09:09→21:05)
[2020-09-09] MEDS: ROBITUSSIN DM PO SCH ×4 (09:09→21:04)
[2020-09-09] MEDS: TRICOR TAB 160 MG PO SCH (09:09)
[2020-09-09] MEDS: PROTONIX INJ 40 MG VIAL IVP SCH ×2 (09:10→21:06)
[2020-09-09] MEDS: KLONOPIN TAB 0.5 MG PO SCH ×2 (09:10→21:06)
[2020-09-09] MEDS: LOVENOX INJ 30 MG SYR SC SCH ×2 (09:11→21:06)
[2020-09-09] MEDS: TAB-A-VITE PO SCH (09:11)
[2020-09-09] MEDS: REMDESIVIR 100 MG in NS 250 ML IV 250 ML IV SCH (09:12)
[2020-09-09] MEDS: PULMICORT NEB TX 0.5 MG NEB SCH ×2 (09:50→21:20)
[2020-09-09] MEDS: DUONEB 0.5 MG/3 MG (3 mL) NEB SCH ×4 (09:50→21:20)
[2020-09-09] MEDS: ZITHROMAX INJ 500 MG VIAL 500 MG in NS 250 ML IV 250 ML IV SCH (11:45)
--- NOTE | 2020-09-09 14:00 | PCM.PROG ---
Progress Note - Progress Note for Day of Date of Exam: 09/08/20 - Subjective Subjective: WAS ADMITTED ON 09/06/20 FOR TREATMENT OF PNEUMONIA DUE TO COVID-19 AND HYPOXIA. HER SYMPTOMS APPARENTLY STARTED THREE DAYS PRIOR TO ADMISSION. TODAY, SHE IS ALERT, LYING IN BED ON MORNING ROUNDS. SHE CONTINUES WITH COMPLAINTS OF COUGH, SHORTNESS OF BREATH, AND WEAKNESS. SHE REPORTS SLIGHT IMPROVEMENT IN SYMPTOMS SINCE ADMISSION. SHE DOES ADMIT TO A HEADACHE THIS MORNING. SHE IS CURRENTLY UTILIZING HEATED HIGH FLOW OXYGEN. HER OXYGEN SATURATIONS HAVE BEEN 93-97% ON HEATED HIGH FLOW. ON EXAMINATION, HEART IS REGULAR IN RATE AND RHYTHM. BILATERAL LUNGS ARE NOTED WITH SCATTERED WHEEZING THROUGHOUT. ABDOMEN IS ROUND, SOFT, AND NON-TENDER WITH NORMAL BOWEL SOUNDS NOTED IN ALL QUADRANTS. HER VITALS THIS MORNING ARE: 98.2-82-18-95%-130/79. LABS WERE OBTAINED. ABNORMAL LAB VALUES INCLUDE THE FOLLOWING: WBC 11.8, POTASSIUM 3.4, GLUCOSE 157, CRP 14, ALBUMIN 2.7. BLOOD AND SPUTUM CULTURES ARE PENDING. AN ABG WAS OBTAINED THIS MORNING AND REVEALED: PH 7.450, PC02 42, P02 73, HC03 2 9.2, 02 SAT 95, FI02 42. A CHEST XRAY WAS OBTAINED AND REVEALED: Slight improvement bilateral interstitial and ground-glass infiltrates when compared with the prior examination. No change cardiomegaly without congestive heart failure. SHE IS CURRENTLY RECEIVING NS AT 20 ML/HR, REMDESIVIR 100MG IV DAILY, AZITHROMYCIN 500MG IV DAILY, SOLU-MEDROL 80MG IV Q8H, DUONEBS QID, PULMICORT NEBS BID, LOVENOX 30MG SC BID, TRICOR 160MG PO DAILY, PROTONIX 40MG IV BID, ASCORBIC ACID 1500MG IV Q6H, KLONOPIN 0.5MG PO BID, LASIX 20MG PO DAILY, ROBITUSSIN DM 10 ML PO QID, TORADOL 30MG IV Q8H PRN PAIN, KLONOPIN 0.5MG PO BID, AND THE POTASSIUM AND MAGNESIUM PROTOCOLS. TODAY, WE WILL ADD FIORICET 2 TABS PO Q8H PRN AND INCREASE IV FLUIDS TO 125 ML/HR. OTHERWISE, WE WILL CONTINUE WITH CURRENT PLAN OF CARE TODAY. WE WILL FOLLOW UP WITH AM LABS, CHEST XRAY, AND ABG AND CONTINUE TO MONITOR. - Past Medical Family Social History Past Med/Fam/Surg Hx: No changes since H&P Allergies: Allergies Penicillins Allergy (Verified 07/24/18 13:32) - Review of Systems ROS: No change since H&P - Vital Signs and I&O's Vital Signs: Temperature 98.2 F Pulse Rate [Left] 64 Pulse Rate 66 Respiratory Rate 18 Blood Pressure [Left Arm] 142/69 Blood Pressure 129/76 O2 Sat by Pulse Oximetry 96 Intake and Output: Intake & Output 09/07/20 09/08/20 09/09/20 09/10/20 11:59 11:59 11:59 11:59 Intake Total 1126 / 1126 2439 / 2439 5568 / 5568 Output Total 900 / 900 1700 / 1700 Balance 226 / 226 2439 / 2439 3868 / 3868 - Physical Exam Oriented: Normal Eyes: Normal Ear: Normal Nose: Normal Throat: Normal Respiratory: Generalized, Diminished, Wheezes Cardiovascular: Normal : Normal Auscultation: Bowel Sounds: Normal Tenderness: Normal Skin: Decreased Turgur Musculoskeletal: Normal Psychiatric: Anxiety Affect: Anxious Speech Pattern: Clear - Laboratory and Diagnostics Result Diagrams: 09/09/20 05:02 09/09/20 05:02 Labs: 09/05/20 22:40 Blood Blood Culture - Preliminary 09/05/20 21:43 Blood Blood Culture - Preliminary Laboratory WBC 10.5 X10^3/uL (3.6-10.0) H 09/09/20 05:02 RBC 4.19 X10^6/uL (3.5-5.4) 09/09/20 05:02 Hgb 12.0 g/dL (12.0-16.0) 09/09/20 05:02 Hct 36.1 % (36.0-47.0) 09/09/20 05:02 MCV 86.0 fL (80.0-100.0) 09/09/20 05:02 MCH 28.7 pg (27.0-34.0) 09/09/20 05:02 MCHC 33.4 g/dL (33.0-35.0) 09/09/20 05:02 RDW 12.9 % (11.6-16.5) 09/09/20 05:02 Plt Count 340 X10^3/uL (150.0-450.0) 09/09/20 05:02 MPV 8.4 fL (7.4-11.0) 09/09/20 05:02 Neut % (Auto) 85.5 % (42.0-75.0) H 09/09/20 05:02 Lymph % (Auto) 8.7 % (21.0-51.0) L 09/09/20 05:02 [place] % (Auto) 5.7 % (0.0-13.0) 09/09/20 05:02 Eos % (Auto) 0.0 % (0.9-2.9) L 09/09/20 05:02 Baso % (Auto) 0.1 % (0.2-1.0) L 09/09/20 05:02 Neut # (Auto) 8.9 x10^3/uL (2.2-4.8) H 09/09/20 05:02 Lymph # (Auto) 0.9 X10^3/uL (1.3-2.9) L 09/09/20 05:02 [place] # (Auto) 0.6 x10^3/uL (0.3-0.8) 09/09/20 05:02 Eos # (Auto) 0.0 x10^3/uL (0.0-0.2) 09/09/20 05:02 Baso # (Auto) 0.0 X10^3/uL (0.0-0.1) 09/09/20 05:02 Absolute Nucleated RBC 0.1 /100WBC 09/09/20 05:02 PT 14.4 SECONDS (11.8-14.3) 09/05/20 21:43 INR Target Range - 09/05/20 21:43 INR 1.15 (0.8-1.3) 09/05/20 21:43 APTT 34.0 SECONDS (22.9-36.5) 09/05/20 21:43 PTT Comment - 09/05/20 21:43 D-Dimer 0.73 ug/ml (0.0-0.57) H* 09/05/20 21:43 Sample Site Rr 09/09/20 05:00 ABG pH 7.460 (7.35-7.45) H 09/09/20 05:00 ABG pCO2 42.0 mmHg (35.0-45.0) 09/09/20 05:00 ABG pO2 152.0 mmHg (80.0-100.0) H 09/09/20 05:00 ABG HCO3 29.9 mmol/L (22-26) H 09/09/20 05:00 ABG O2 Saturation 99.0 % (90-100) 09/09/20 05:00 ABG Base Excess 5.5 mmol/L (-2.0-2.0) H 09/09/20 05:00 Tino Test Pos 09/09/20 05:00 A-a Gradient 88.0 mmHg 09/09/20 05:00 FiO2 41.0 09/09/20 05:00 Blood Gas Comments Bettye well sw 09/09/20 05:00 Sodium 141 mmol/L (136-145) 09/09/20 05:02 Corrected Sodium 144 mmol/L (136-145) 09/09/20 05:02 Potassium 3.4 mmol/L (3.5-5.1) L 09/09/20 05:02 Chloride 104 mmol/L (98-107) 09/09/20 05:02 Carbon Dioxide 28.2 mmol/L (21-32) 09/09/20 05:02 BUN 10 mg/dL (7-18) 09/09/20 05:02 Creatinine 0.72 mg/dL (0.55-1.02) 09/09/20 05:02 Est GFR (MDRD) Af Amer > 60 (>60) 09/09/20 05:02 Est GFR (MDRD) Non-Af > 60 (>60) 09/09/20 05:02 Glucose 225 mg/dL (65-99) H 09/09/20 05:02 Calcium 8.7 mg/dL (8.5-10.1) 09/09/20 05:02 Corrected Calcium 9.9 mg/dL (8.5-10.1) 09/09/20 05:02 Magnesium 2.2 mg/dL (1.7-2.9) 09/09/20 05:02 Ferritin 426 ng/mL (8-252) H 09/05/20 21:43 Total Bilirubin 0.20 mg/dL (0.2-1.0) 09/09/20 05:02 AST 13 Units/L (15-37) L 09/09/20 05:02 ALT 21 Units/L (12-78) 09/09/20 05:02 Alkaline Phosphatase 78 Units/L (46-116) 09/09/20 05:02 Creatine Kinase 24 Units/L (26-192) L 09/05/20 21:43 CK-MB (CK-2) < 1.0 ng/mL (0-4.0) 09/05/20 21:43 CK/CKMB % Calc 4.2 % (<4) 09/05/20 21:43 Troponin I < 0.02 ng/mL (0-1.5) 09/06/20 06:05 C-Reactive Protein 3.70 mg/L (0-3.0) H 09/09/20 05:02 B-Natriuretic Peptide 90.6 pg/mL (0-79) H 09/05/20 21:43 Total Protein 6.3 g/dL (6.4-8.2) L 09/09/20 05:02 Albumin 2.5 g/dL (3.4-5.0) L 09/09/20 05:02 Globulin 3.8 g/dL (2.5-4.5) 09/09/20 05:02 Albumin/Globulin Ratio 0.7 Ratio (1.1-2.1) L 09/09/20 05:02 Specimen Type Clean catch urine 09/04/20 23:57 Urine Color Yellow (YELLOW) 09/04/20 23:57 Urine Appearance Clear (CLEAR) 09/04/20 23:57 Urine pH 7.0 (5.0 - 8.0) 09/04/20 23:57 Ur Specific [place] 1.015 (1.000-1.030) 09/04/20 23:57 Urine Protein 1+ (NEGATIVE) 09/04/20 23:57 Urine Glucose (UA) Negative (NEGATIVE) 09/04/20 23:57 Urine Ketones 2+ (NEGATIVE) 09/04/20 23:57 Urine Occult Blood Negative (NEGATIVE) 09/04/20 23:57 Urine Nitrite Negative (NEGATIVE) 09/04/20 23:57 Urine Bilirubin Negative (NEGATIVE) 09/04/20 23:57 Urine Urobilinogen Normal (NORMAL) 09/04/20 23:57 Ur Leukocyte Esterase 2+ (NEGATIVE) 09/04/20 23:57 Urine RBC 0-2 /HPF (0-3) 09/04/20 23:57 Urine WBC 0-2 /HPF (0-5) 09/04/20 23:57 Ur Squamous Epith Cells Few /HPF (NEGATIVE) 09/04/20 23:57 Urine Bacteria Negative /HPF (NEGATIVE) 09/04/20 23:57 Ur Culture Indicated? No/not indicated 09/04/20 23:57 SARS CoV-2 RNA Rapid LARISSA Positive (NEGATIVE) A 09/05/20 22:17 SARS-CoV-2 IgG Ab Cancelled 09/05/20 21:43 SARS-CoV-2 IgG (PALOMA) 1 Cancelled 09/05/20 21:43 - Plan (1) Pneumonia due to 2019 novel coronavirus Status: Acute Plan: NS AT 2125 ML/HR, REMDESIVIR 100MG IV DAILY, AZITHROMYCIN 500MG IV DAILY, SOLU-MEDROL 80MG IV Q8H, DUONEBS QID, PULMICORT NEBS BID, LOVENOX 30MG SC BID, TRICOR 160MG PO DAILY, PROTONIX 40MG IV BID, ASCORBIC ACID 1500MG IV Q6H, K LONOPIN 0.5MG PO BID, LASIX 20MG PO DAILY, ROBITUSSIN DM 10 ML PO QID, TORADOL 30MG IV Q8H PRN PAIN, FIORICET 2 TABS PO Q8H PRN, KLONOPIN 0.5MG PO BID, AND THE POTASSIUM AND MAGNESIUM PROTOCOLS (2) Hypoxia Status: Acute
--- NOTE | 2020-09-09 14:03 | PCM.PROG ---
Progress Note - Progress Note for Day of Date of Exam: 09/09/20 - Subjective Subjective: WAS ADMITTED ON 09/06/20 FOR TREATMENT OF PNEUMONIA DUE TO COVID-19 AND HYPOXIA. HER SYMPTOMS APPARENTLY STARTED THREE DAYS PRIOR TO ADMISSION. TODAY, SHE IS ALERT, LYING IN BED ON MORNING ROUNDS. SHE CONTINUES WITH COMPLAINTS OF COUGH, SHORTNESS OF BREATH, AND WEAKNESS. SHE CONTINUES TO REPORT SLIGHT IMPROVEMENT IN SYMPTOMS SINCE ADMISSION. SHE IS CURRENTLY UTILIZING HEATED HIGH FLOW OXYGEN. HER OXYGEN SATURATIONS HAVE BEEN 92-97% ON HEATED HIGH FLOW. ON EXAMINATION, HEART IS REGULAR IN RATE AND RHYTHM. BILATERAL LUNGS ARE NOTED WITH SCATTERED WHEEZING THROUGHOUT. ABDOMEN IS ROUND, SOFT, AND NON-TENDER WITH NORMAL BOWEL SOUNDS NOTED IN ALL QUADRANTS. HER VITALS THIS MORNING ARE: 98.2-64-22-95%HHF-142/69. LABS WERE OBTAINED. ABNORMAL LAB VALUES INCLUDE THE FOLLOWING: WBC 11.8, POTASSIUM 3.4, GLUCOSE 157, CRP 14, ALBUMIN 2.7. BLOOD AND SPUTUM CULTURES ARE PENDING. AN ABG WAS OBTAINED THIS MORNING AND REVEALED: PH 7.460, PC02 42, P02 152, HC03 29.9, 02 SAT 99, FI02 41. A CHEST XRAY WAS OBTAINED AND REVEALED: Similar appearance to prior study of interstitial opacities consistent with COVID-19. SHE IS CURRENTLY RECEIVING NS AT 125 ML/HR, REMDESIVIR 100MG IV DAILY, AZITHROMYCIN 500MG IV DAILY, SOLU- MEDROL 80MG IV Q8H, DUONEBS QID, PULMICORT NEBS BID, LOVENOX 30MG SC BID, TRICOR 160MG PO DAILY, PROTONIX 40MG IV BID, ASCORBIC ACID 1500MG IV Q6H, KLONOPIN 0.5MG PO BID, LASIX 20MG PO DAILY, ROBITUSSIN DM 10 ML PO QID, TORADOL 30MG IV Q8H PRN PAIN, FIORICET 2 TABS PO Q8H PRN, KLONOPIN 0.5MG PO BID, AND THE POTASSIUM AND MAGNESIUM PROTOCOLS. WE WILL CONTINUE WITH CURRENT PLAN OF CARE TODAY. OTHERWISE, WE WILL FOLLOW UP WITH AM LABS, CHEST XRAY, AND ABG AND CONTINUE TO MONITOR. - Past Medical Family Social History Past Med/Fam/Surg Hx: No changes since H&P Allergies: Allergies Penicillins Allergy (Verified 07/24/18 13:32) - Review of Systems ROS: No change since H&P - Vital Signs and I&O's Vital Signs: Temperature 98.2 F Pulse Rate [Left] 64 Pulse Rate 66 Respiratory Rate 18 Blood Pressure [Left Arm] 142/69 Blood Pressure 129/76 O2 Sat by Pulse Oximetry 96 Intake and Output: Intake & Output 09/07/20 09/08/20 09/09/20 09/10/20 11:59 11:59 11:59 11:59 Intake Total 1126 / 1126 2439 / 2439 5568 / 5568 Output Total 900 / 900 1700 / 1700 Balance 226 / 226 2439 / 2439 3868 / 3868 - Physical Exam Oriented: Normal Eyes: Normal Ear: Normal Nose: Normal Throat: Normal Respiratory: Generalized, Diminished, Wheezes Cardiovascular: Normal : Normal Auscultation: Bowel Sounds: Normal Tenderness: Normal Skin: Decreased Turgur Musculoskeletal: Normal Psychiatric: Anxiety Affect: Anxious Speech Pattern: Clear - Laboratory and Diagnostics Result Diagrams: 09/09/20 05:02 09/09/20 05:02 Labs: 09/05/20 22:40 Blood Blood Culture - Preliminary 09/05/20 21:43 Blood Blood Culture - Preliminary Laboratory WBC 10.5 X10^3/uL (3.6-10.0) H 09/09/20 05:02 RBC 4.19 X10^6/uL (3.5-5.4) 09/09/20 05:02 Hgb 12.0 g/dL (12.0-16.0) 09/09/20 05:02 Hct 36.1 % (36.0-47.0) 09/09/20 05:02 MCV 86.0 fL (80.0-100.0) 09/09/20 05:02 MCH 28.7 pg (27.0-34.0) 09/09/20 05:02 MCHC 33.4 g/dL (33.0-35.0) 09/09/20 05:02 RDW 12.9 % (11.6-16.5) 09/09/20 05:02 Plt Count 340 X10^3/uL (150.0-450.0) 09/09/20 05:02 MPV 8.4 fL (7.4-11.0) 09/09/20 05:02 Neut % (Auto) 85.5 % (42.0-75.0) H 09/09/20 05:02 Lymph % (Auto) 8.7 % (21.0-51.0) L 09/09/20 05:02 Floyd % (Auto) 5.7 % (0.0-13.0) 09/09/20 05:02 Eos % (Auto) 0.0 % (0.9-2.9) L 09/09/20 05:02 Baso % (Auto) 0.1 % (0.2-1.0) L 09/09/20 05:02 Neut # (Auto) 8.9 x10^3/uL (2.2-4.8) H 09/09/20 05:02 Lymph # (Auto) 0.9 X10^3/uL (1.3-2.9) L 09/09/20 05:02 Floyd # (Auto) 0.6 x10^3/uL (0.3-0.8) 09/09/20 05:02 Eos # (Auto) 0.0 x10^3/uL (0.0-0.2) 09/09/20 05:02 Baso # (Auto) 0.0 X10^3/uL (0.0-0.1) 09/09/20 05:02 Absolute Nucleated RBC 0.1 /100WBC 09/09/20 05:02 PT 14.4 SECONDS (11.8-14.3) 09/05/20 21:43 INR Target Range - 09/05/20 21:43 INR 1.15 (0.8-1.3) 09/05/20 21:43 APTT 34.0 SECONDS (22.9-36.5) 09/05/20 21:43 PTT Comment - 09/05/20 21:43 D-Dimer 0.73 ug/ml (0.0-0.57) H* 09/05/20 21:43 Sample Site Rr 09/09/20 05:00 ABG pH 7.460 (7.35-7.45) H 09/09/20 05:00 ABG pCO2 42.0 mmHg (35.0-45.0) 09/09/20 05:00 ABG pO2 152.0 mmHg (80.0-100.0) H 09/09/20 05:00 ABG HCO3 29.9 mmol/L (22-26) H 09/09/20 05:00 ABG O2 Saturation 99.0 % (90-100) 09/09/20 05:00 ABG Base Excess 5.5 mmol/L (-2.0-2.0) H 09/09/20 05:00 Tino Test Pos 09/09/20 05:00 A-a Gradient 88.0 mmHg 09/09/20 05:00 FiO2 41.0 09/09/20 05:00 Blood Gas Comments Bettye well sw 09/09/20 05:00 Sodium 141 mmol/L (136-145) 09/09/20 05:02 Corrected Sodium 144 mmol/L (136-145) 09/09/20 05:02 Potassium 3.4 mmol/L (3.5-5.1) L 09/09/20 05:02 Chloride 104 mmol/L (98-107) 09/09/20 05:02 Carbon Dioxide 28.2 mmol/L (21-32) 09/09/20 05:02 BUN 10 mg/dL (7-18) 09/09/20 05:02 Creatinine 0.72 mg/dL (0.55-1.02) 09/09/20 05:02 Est GFR (MDRD) Af Amer > 60 (>60) 09/09/20 05:02 Est GFR (MDRD) Non-Af > 60 (>60) 09/09/20 05:02 Glucose 225 mg/dL (65-99) H 09/09/20 05:02 Calcium 8.7 mg/dL (8.5-10.1) 09/09/20 05:02 Corrected Calcium 9.9 mg/dL (8.5-10.1) 09/09/20 05:02 Magnesium 2.2 mg/dL (1.7-2.9) 09/09/20 05:02 Ferritin 426 ng/mL (8-252) H 09/05/20 21:43 Total Bilirubin 0.20 mg/dL (0.2-1.0) 09/09/20 05:02 AST 13 Units/L (15-37) L 09/09/20 05:02 ALT 21 Units/L (12-78) 09/09/20 05:02 Alkaline Phosphatase 78 Units/L (46-116) 09/09/20 05:02 Creatine Kinase 24 Units/L (26-192) L 09/05/20 21:43 CK-MB (CK-2) < 1.0 ng/mL (0-4.0) 09/05/20 21:43 CK/CKMB % Calc 4.2 % (<4) 09/05/20 21:43 Troponin I < 0.02 ng/mL (0-1.5) 09/06/20 06:05 C-Reactive Protein 3.70 mg/L (0-3.0) H 09/09/20 05:02 B-Natriuretic Peptide 90.6 pg/mL (0-79) H 09/05/20 21:43 Total Protein 6.3 g/dL (6.4-8.2) L 09/09/20 05:02 Albumin 2.5 g/dL (3.4-5.0) L 09/09/20 05:02 Globulin 3.8 g/dL (2.5-4.5) 09/09/20 05:02 Albumin/Globulin Ratio 0.7 Ratio (1.1-2.1) L 09/09/20 05:02 Specimen Type Clean catch urine 09/04/20 23:57 Urine Color Yellow (YELLOW) 09/04/20 23:57 Urine Appearance Clear (CLEAR) 09/04/20 23:57 Urine pH 7.0 (5.0 - 8.0) 09/04/20 23:57 Ur Specific [place] 1.015 (1.000-1.030) 09/04/20 23:57 Urine Protein 1+ (NEGATIVE) 09/04/20 23:57 Urine Glucose (UA) Negative (NEGATIVE) 09/04/20 23:57 Urine Ketones 2+ (NEGATIVE) 09/04/20 23:57 Urine Occult Blood Negative (NEGATIVE) 09/04/20 23:57 Urine Nitrite Negative (NEGATIVE) 09/04/20 23:57 Urine Bilirubin Negative (NEGATIVE) 09/04/20 23:57 Urine Urobilinogen Normal (NORMAL) 09/04/20 23:57 Ur Leukocyte Esterase 2+ (NEGATIVE) 09/04/20 23:57 Urine RBC 0-2 /HPF (0-3) 09/04/20 23:57 Urine WBC 0-2 /HPF (0-5) 09/04/20 23:57 Ur Squamous Epith Cells Few /HPF (NEGATIVE) 09/04/20 23:57 Urine Bacteria Negative /HPF (NEGATIVE) 09/04/20 23:57 Ur Culture Indicated? No/not indicated 09/04/20 23:57 SARS CoV-2 RNA Rapid LARISSA Positive (NEGATIVE) A 09/05/20 22:17 SARS-CoV-2 IgG Ab Cancelled 09/05/20 21:43 SARS-CoV-2 IgG (PALOMA) 1 Cancelled 09/05/20 21:43 - Plan (1) Pneumonia due to 2019 novel coronavirus Status: Acute Plan: NS AT 2125 ML/HR, REMDESIVIR 100MG IV DAILY, AZITHROMYCIN 500MG IV DAILY, SOLU-MEDROL 80MG IV Q8H, DUONEBS QID, PULMICORT NEBS BID, LOVENOX 30MG SC BID, TRICOR 160MG PO DAILY, PROTONIX 40MG IV BID, ASCORBIC ACID 1500MG IV Q6H, KLONOPIN 0.5MG PO BID, LASIX 20MG PO DAILY, ROBITUSSIN DM 10 ML PO QID, TORADOL 30MG IV Q8H PRN PAIN, FIORICET 2 TABS PO Q8H PRN, KLONOPIN 0.5MG PO BID, AND THE POTASSIUM AND MAGNESIUM PROTOCOLS (2) Hypoxia Status: Acute
[2020-09-09] MEDS ORDERED: BENADRYL INJ 50 MG VIAL IVP ONE (19:08)
[2020-09-09] MEDS: CELEXA PO SCH (21:05)
[2020-09-09] MEDS: CATAPRES TAB 0.1 MG PO SCH (21:05)
[2020-09-09] MEDS: TORADOL 30 MG VIAL IVP PRN (21:07)
[2020-09-09] MEDS: K-DUR TAB 20 MEQ PO PRN (21:07)
[2020-09-10] MEDS: ULTRAM PO PRN (00:27)
[2020-09-10] MEDS: NS 1000 ML 1,000 ML IV SCH (01:00)
[2020-09-10] MEDS: ASCORBIC ACID INJ MULTI-DOSE VIAL 1,500 MG in NS 100 ML IV 100 ML IV SCH ×2 (03:07→09:30)
[2020-09-10] MEDS: SOLU-Medrol 125 MG VIAL IVP SCH ×2 (05:04→14:36)
[2020-09-10] MEDS: TESSALON PERLES PO SCH ×2 (05:04→14:36)
[2020-09-10 05:37] LABS: BASOPHILS % (AUTO) 0.1 % (0.2-1.0); HEMATOCRIT 36.6 % (36.0-47.0); HEMOGLOBIN 12.1 g/dL (12.0-16.0); LYMPHOCYTES # (AUTO) 1.2 X10^3/uL (1.3-2.9); LYMPHOCYTES % (AUTO) 12.1 % (21.0-51.0); MEAN CORPUSCULAR HEMOGLOBIN 28.3 pg (27.0-34.0); MEAN CORPUSCULAR HGB CONC 32.9 g/dL (33.0-35.0); MEAN CORPUSCULAR VOLUME 85.9 fL (80.0-100.0); MEAN PLATELET VOLUME 8.2 fL (7.4-11.0); MONOCYTES # (AUTO) 0.8 x10^3/uL (0.3-0.8); MONOCYTES % (AUTO) 8.6 % (0.0-13.0); NEUTROPHILS # (AUTO) 7.6 x10^3/uL (2.2-4.8); NEUTROPHILS % (AUTO) 79.2 % (42.0-75.0); PLATELET COUNT 342 X10^3/uL (150.0-450.0); RED BLOOD COUNT 4.27 X10^6/uL (3.5-5.4); RED CELL DISTRIBUTION WIDTH 13.1 % (11.6-16.5); WHITE BLOOD COUNT 9.6 X10^3/uL (3.6-10.0)
[2020-09-10 05:56] LABS: ALANINE AMINOTRANSFERASE 22 Units/L (12-78); ALBUMIN 2.6 g/dL (3.4-5.0); ALKALINE PHOSPHATASE 72 Units/L (46-116); ASPARTATE AMINO TRANSFERASE 14 Units/L (15-37); BLOOD UREA NITROGEN 11 mg/dL (7-18); CALCIUM 8.4 mg/dL (8.5-10.1); CHLORIDE 104 mmol/L (98-107); COR CA(FOR HYPOALB) 9.5 mg/dL (8.5-10.1); COR NA(FOR HYPERGLY) 143 mmol/L (136-145); CREATININE 0.78 mg/dL (0.55-1.02); SODIUM 141 mmol/L (136-145); eGFR NON BLACK RACES > 60 (>60)
[2020-09-10 06:43] LABS: ABG BASE EXCESS 7.4 mmol/L (-2.0-2.0)
[2020-09-10 06:45] LABS: ABG HCO3 31.2 mmol/L (22-26)
[2020-09-10 06:46] LABS: ABG ALLEN TEST POSS
--- NOTE | 2020-09-10 06:58 | RAD ---
HISTORYFollow-up COVID-19STUDYChest AP [id number]/2020FINDINGSThe heart is enlarged. No congestive heart failure is noted. The lungs are mildly hypoinflated. Interstitial infiltrates are again demonstrated bilaterally not significantly changed in degree or distribution from the prior examination. No pleural effusions are identified. Bony thorax is unremarkable.IMPRESSIONNo significant change when compared to the prior examinationElectronically signed by: ANAM HEWITT (Sep 10, 2020 06:56:34)
[2020-09-10] MEDS: FIORICET TAB PO PRN (07:12)
[2020-09-10] MEDS: PROTONIX INJ 40 MG VIAL IVP SCH (09:30)
[2020-09-10] MEDS: REMDESIVIR 100 MG in NS 250 ML IV 250 ML IV SCH (09:31)
[2020-09-10] MEDS: K-DUR TAB 20 MEQ PO PRN (09:32)
[2020-09-10] MEDS: FLONASE NASAL SPRAY ENOSTRIL SCH (09:33)
[2020-09-10] MEDS: ZINC SULFATE PO SCH (09:34)
[2020-09-10] MEDS: VITAMIN D3 125 mcg (5,000 UNITS) PO SCH (09:34)
[2020-09-10] MEDS: KLONOPIN TAB 0.5 MG PO SCH (09:35)
[2020-09-10] MEDS: ROBITUSSIN DM PO SCH ×2 (09:35→14:35)
[2020-09-10] MEDS: LASIX PO SCH (09:35)
[2020-09-10] MEDS: TRICOR TAB 160 MG PO SCH (09:35)
[2020-09-10] MEDS: LOVENOX INJ 30 MG SYR SC SCH (09:36)
[2020-09-10] MEDS: TAB-A-VITE PO SCH (09:36)
[2020-09-10] MEDS: PULMICORT NEB TX 0.5 MG NEB SCH (10:00)
[2020-09-10] MEDS: DUONEB 0.5 MG/3 MG (3 mL) NEB SCH (10:00)
[2020-09-10] MEDS: ZITHROMAX INJ 500 MG VIAL 500 MG in NS 250 ML IV 250 ML IV SCH (12:00)
[2020-09-10 12:28] VITALS: BP 106/74
== END 2020-09-10 14:10 | disposition home or self-care (01) | DRG 177 ==
LOC: ER 20:25 → MED/SURG 09-06 00:36
PROVIDERS: ADMIT Internal Medicine; ATTEND Internal Medicine